=== PATIENT | female | born 1995 | race Caucasian/White ===

== ENCOUNTER 2024-08-03 11:18 | Emergency (ER) | payer OTHER, SELFPAY ==
[2024-08-03 11:21] VITALS: BP 109/74
[2024-08-03 12:08] VITALS: BP 102/66; BMI 21.1
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
[2024-08-03 13:03] VITALS: BP 96/68
== END 2024-08-03 13:35 | disposition home or self-care (01) ==
LOC: EMR 11:18
PROVIDERS: EMERGENCY PHYSICIAN Emergency Medicine; FAMILY PHYSICIAN Physician Assistant
DX: S69.92XA Unspecified injury of left wrist, hand and finger(s), initial encounter (principal); V89.2XXA Person injured in unspecified motor-vehicle accident, traffic, initial encounter; Y92.410 Unspecified street and highway as the place of occurrence of the external cause; G40.909 Epilepsy, unspecified, not intractable, without status epilepticus
CPT/HCPCS: 99283; 73130

== ENCOUNTER 2024-08-13 12:38 | Emergency (ER) | payer SELFPAY ==
[2024-08-13 12:43] VITALS: BP 107/72
[2024-08-13 13:01] LABS: % Basophils 0.9 % (0-2); % Eosinophils 1.9 % (0-6); % Immature Granulocytes 0.5 % (0-0.5); % Lymphocytes 23.5 % (20.5-51.1); % Monocytes 5.8 % (1.7-9.3); % Neutrophils 67.4 % (42.2-75.2); Absolute Basophils 0.1 10^3/uL (0-0.2); Absolute Eosinophils 0.2 10^3/uL (0-0.7); Absolute Lymphocytes 2.1 10^3/uL (1.2-3.4); Absolute Monocytes 0.5 10^3/uL (0.1-0.6); Absolute Neutrophils 5.9 10^3/uL (1.4-6.5); Hematocrit 39.2 % (37.0-47.0); Hemoglobin 13.3 g/dL (12.0-16.0); Mean Corp Hgb Conc. 33.9 g/dL (33.0-37.0); Mean Corpuscular Hgb 32.4 pg (27.0-31.0); Mean Corpuscular Volume 95.6 fL (81.0-99.0); Mean Platelet Volume 9.9 fL (7.4-10.4); Nucleated Red Blood Cells % 0 %; Platelet Count 290 10^3/uL (130-400); Red Cell Dist. Width 12.3 % (11.5-14.5); White Blood Cell Count 8.8 10^3/uL (4.8-10.8)
[2024-08-13 13:13] LABS: ALT (SGPT) 21 U/L (0-35); AST (SGOT) 21 U/L (14-36); Alkaline Phosphatase 66 U/L (38-126); Blood Urea Nitrogen 13 mg/dl (7-17); Calcium 9.6 mg/dl (8.4-10.2); Carbon Dioxide 20 mmol/L (22-30); Chloride 106 mmol/L (98-107); Glucose 82 mg/dl (70-99); Potassium 4.5 mmol/L (3.5-5.1); Sodium 140 mmol/L (135-145); Total Bilirubin 0.6 mg/dl (0.2-1.3); Total Protein 7.5 g/dl (6.3-8.2); eGFR > 60.00
[2024-08-13] MEDS: ZOFRAN 4 MG IV (13:24)
[2024-08-13] MEDS: NSS 1000 IV (13:25)
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
[2024-08-13] MEDS: KEPPRA 1000 MG IV (13:28)
[2024-08-13 14:20] LABS: HCG, Serum Qualitative Screen Negative
[2024-08-13 15:58] VITALS: BP 97/68
[2024-08-15 10:08] LABS: Keppra (Levetiracetam) 5 ug/mL (10-40)
== END 2024-08-13 16:19 | disposition home or self-care (01) ==
LOC: EMR 12:38
PROVIDERS: EMERGENCY PHYSICIAN Emergency Medicine; FAMILY PHYSICIAN Physician Assistant
DX: G40.909 Epilepsy, unspecified, not intractable, without status epilepticus (principal); R11.0 Nausea
CPT/HCPCS: 99284; 96374; 96375; 70450; 80053; 80177; 84703; 85025

== ENCOUNTER → 2024-10-23 11:11 | Outpatient (REF) | payer OTHER, SELFPAY ==
--- NOTE | 2024-10-25 15:58 | EEG.RPT ---
Electroencephalogram Report
Recording
Date of EE10/23/24
Type of EEG: Routine
Length of EEG recordin minutes
Done with Video Recording: Yes
Patient Status: Outpatient
Recording Conditions: Awake
Hyperventilation Performed: Yes
Photic Stimulation Performed: Yes
Report
Clinical Background:�28 year old woman with history of seizures
Introduction: A routine bedside EEG was done using [employer] 10-20 electrode placement protocol.
Background: In the most alert state, the PDR is 10 Hz in frequency with normal amplitude. There is spontaneous variability and reactivity.�
Sleep: No sleep is seen.�
Focal/epileptiform: There were no focal or epileptiform discharges. No clinical or electrographic seizures occurred during this recording.
Hyperventilation: resulted in symmetric slowing
Photic stimulation: resulted in normal driving response. There was no photo myogenic or photoparoxysmal response.�
Impression: Normal EEG
== END ==
LOC: EEG 11:11
PROVIDERS: ATTENDING PHYSICIAN Physician Assistant
DX: F44.5 Conversion disorder with seizures or convulsions (principal)
CPT/HCPCS: 95816

== ENCOUNTER 2025-02-08 12:35 | Emergency (ER) | payer OTHER, SELFPAY ==
[2025-02-08 12:37] VITALS: BP 106/73
[2025-02-08 12:38] VITALS: BP 106/73
[2025-02-08 12:44] VITALS: BMI 20.3
--- NOTE | 2025-02-08 12:48 | EDRN ---
Seizure pads placed on stretcher sides.
[2025-02-08 13:00] VITALS: BP 103/68
[2025-02-08 13:04] LABS: % Basophils 1.3 % (0-2); % Immature Granulocytes 0.3 % (0-0.5); % Lymphocytes 29.7 % (20.5-51.1); % Monocytes 7.5 % (1.7-9.3); % Neutrophils 54.2 % (42.2-75.2); Absolute Basophils 0.1 10^3/uL (0-0.2); Absolute Eosinophils 0.5 10^3/uL (0-0.7); Absolute Lymphocytes 2.3 10^3/uL (1.2-3.4); Absolute Monocytes 0.6 10^3/uL (0.1-0.6); Absolute Neutrophils 4.2 10^3/uL (1.4-6.5); Hematocrit 33.9 % (37.0-47.0); Hemoglobin 12.1 g/dL (12.0-16.0); Mean Corp Hgb Conc. 35.7 g/dL (33.0-37.0); Mean Corpuscular Hgb 32.4 pg (27.0-31.0); Mean Corpuscular Volume 90.6 fL (81.0-99.0); Mean Platelet Volume 10.2 fL (7.4-10.4); Nucleated Red Blood Cells % 0 %; Platelet Count 245 10^3/uL (130-400); Red Blood Cell Count 3.74 10^6/uL (4.20-5.40); Red Cell Dist. Width 12.9 % (11.5-14.5); White Blood Cell Count 7.8 10^3/uL (4.8-10.8)
[2025-02-08] MEDS: KEPPRA 1000 MG IV (13:16)
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
[2025-02-08 13:25] LABS: HCG, Serum Qualitative Screen Negative
[2025-02-08 13:36] LABS: ALT (SGPT) 17 U/L (0-35); AST (SGOT) 19 U/L (14-36); Albumin 4.3 g/dl (3.5-5.0); Alkaline Phosphatase 41 U/L (38-126); Blood Urea Nitrogen 14 mg/dl (7-17); Calcium 9.2 mg/dl (8.4-10.2); Carbon Dioxide 16 mmol/L (22-30); Chloride 112 mmol/L (98-107); Estimated Creatinine Clearance > 125 ml/min; Glucose 89 mg/dl (70-99); Potassium 4.2 mmol/L (3.5-5.1); Sodium 138 mmol/L (135-145); Total Bilirubin 0.6 mg/dl (0.2-1.3); Total Protein 6.4 g/dl (6.3-8.2); eGFR > 60.00
--- NOTE | 2025-02-08 13:50 | EDRN ---
Pt has abrasions to Bilateral knees L worse that R, L knee danuta half dollar sized and R knee nickel sized. Pt has tiny abrasions to top of foot at base of toes bilaterally. Tiny abrasions to bilateral dorsal wrists and dorsal hands and abrasion to
upper lip and R lower face below lower lips. All abrasions cleansed w/ soap and water, rinsed and dried w/ double antibiotic ointment to all abrasions. L knee dressed w/ 2 adhesive telfas and kerlix. R knee dressed w/ large bandaid and L dorsal
wrist dressed w/ regular bandaid. Pt given cleansing wipse for 1st degree sharif to bilateral lower arms and bilateral anterior thighs (from upper leg to just below elena knees) as wipes have some aloe in them.
[2025-02-08 14:00] VITALS: BP 101/74
[2025-02-08] MEDS: ADACEL 0.5 ML IM (14:08)
[2025-02-10 18:28] LABS: Keppra (Levetiracetam) 9 ug/mL (10-40)
== END 2025-02-08 14:50 | disposition home or self-care (01) ==
LOC: EMR 12:35
PROVIDERS: EMERGENCY PHYSICIAN Emergency Medicine
DX: G40.909 Epilepsy, unspecified, not intractable, without status epilepticus (principal); Z23 Encounter for immunization
CPT/HCPCS: 99283; 96374; 90471; 80053; 80177; 84703; 85025; 90715; 96361